=== PATIENT | male | born 1985 | race American Indian/Alaskan Native ===

== ENCOUNTER 2017-05-02 20:39 | Emergency (ER) | payer BC, OTHER ==
--- NOTE | 2017-05-02 21:01 | EDM.PDOC ---
ED HPI GENERAL MEDICAL PROBLEM - General Chief Complaint: Skin Complaint Stated Complaint: nose ring pain Time Seen by Provider: 05/02/17 20:52 Source of Information: Reports: Patient History Limitations: Reports: No Limitations - History of Present Illness INITIAL COMMENTS - FREE TEXT/NARRATIVE: Patient is a 31-year-old male who presents to the ED wishing to nose ring removed. Patient states the ball holding the nose ring in place fell off and now he cannot move the nose ring freely. He believes it is stuck. He attempted to pull it out no success. There is no drainage, redness, and/or swelling noted to the site. - Related Data Allergies Allergy/AdvReac Type Severity Reaction Status Date / Time No Known Allergies Allergy Verified 05/02/17 20:46 Home Meds: Home Meds Penicillin V Potassium 500 mg PO Q6H 05/02/17 [History] Past Medical History - Past Health History Medical/Surgical History: Denies Medical/Surgical History Social & Family History - Tobacco Use Smoking Status *Q: Never Smoker Second Hand Smoke Exposure: No - Alcohol Use Days Per Week of Alcohol Use: 0 - Recreational Drug Use Recreational Drug Use: No ED ROS GENERAL - Review of Systems Review Of Systems: ROS reveals no pertinent complaints other than HPI. ED EXAM, SKIN/RASH Exam: See Below Exam Limited By: No Limitations General Appearance: Alert, WD/WN, No Apparent Distress Ears: Hearing Grossly Normal Nose: Normal Inspection (Cold color nose ring to the left nares. Unable to manipulate. No swelling, redness, or purulent drainage noted.), Other Throat/Mouth: Normal Voice, No Airway Compromise Neck: Supple Respiratory/Chest: No Respiratory Distress Course - Vital Signs Last Recorded V/S: Last Vital Signs Temp 97.5 F 05/02/17 20:47 Pulse 94 05/02/17 20:47 Resp 15 05/02/17 20:47 BP 129/80 05/02/17 20:47 Pulse Ox 97 05/02/17 20:47 - Re-Assessments/Exams Free Text/Narrative Re-Assessment/Exam: Utilized a wire snips to cut the nose ring. Once cut the nose ring fell out. No bleeding. Minimal pain present. No other concerning findings. Discharge instructions as documented. Departure - Departure Time of Disposition: 20:59 Disposition: Home, Self-Care 01 Condition: Good Clinical Impression: Nose pain - Discharge Information Referrals: PCP,None [Primary Care Provider] - Forms: ED Department Discharge, ED Return to Work/School Form Additional Instructions: Monitor for increased redness, purulent drainage, or increasing pain. At this point Tylenol and ibuprofen as needed for pain. Return to the ED as needed for any new or worsening symptoms.
== END 2017-05-02 21:11 | disposition home or self-care (01) ==
LOC: JD.ED 20:39
DX: J34.89 Other specified disorders of nose and nasal sinuses (principal)
CPT/HCPCS: 99282; 99283

== ENCOUNTER 2017-08-23 16:28 | Emergency (ER) | payer MEDICAID, OTHER ==
--- NOTE | 2017-08-23 17:39 | EDM.PDOC ---
<Merced Burnett - Last Filed: 08/23/17 17:49> ED HPI GENERAL MEDICAL PROBLEM - General Chief Complaint: ENT Problem Stated Complaint: THROAT IS TIGHT/FOOD GETS STUCK Time Seen by Provider: 08/23/17 17:25 Source of Information: Reports: Patient History Limitations: Reports: No Limitations - History of Present Illness INITIAL COMMENTS - FREE TEXT/NARRATIVE: 32 yo male presents for concern about throat tightening and the sensation that he may choke while eating for the past few weeks. 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 He is worried this sensation feels the same as he did before the tumor was found and is concerned it may have returned. 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 He works in the [employer] and tomorrow is his first day of this job for the next two weeks. His mother and sister have lymphoma and he is anxious about leaving them. He admits to increased anxiety about the tumor returning and being out on the job site far from medical facilities and choking on food. He denies that he has actually choked on food but has brought tiny particles back up. He can swallow liquids and saliva with no problems. He denies dyspnea on exertion or shortness of breath or cough. He is asymptomatic when he is not eating. He was recently prescribed Hydroxyzine back home in [place], but has not started taking it yet because he needs it cleared through work. He reports associated itching and prickly sensation starting at his head and traveling down to his feet when he eats and has these choking or throat tightening sensations. He reports a great fear of his "heart stopping" and does not want to take any medications that could prolong his QT interval. He said this is why he stopped an SSRI and why he is also concerned about Hydroxyzine. He admits to an anxious personality and increased stress, but believes the possibility of the nerve tumor returning has made this worse. Onset: Gradual Onset Date: 08/04/17 Duration: Week(s): (approximately 2 weeks ago), Other (only with eating food) Location: Reports: Other (throat) Quality: Reports: Other (tightness with swallowing) Improves with: Reports: None Worsens with: Reports: Eating Context: Reports: Other (onset after eating pancakes a few weeks ago) Associated Symptoms: Reports: Loss of Appetite (2/2 fear of choking or having food stuck), Other (anxiety) - Related Data Allergies Allergy/AdvReac Type Severity Reaction Status Date / Time fish oil Allergy Rash Verified 08/23/17 16:36 Home Meds: Home Meds . [No Known Home Meds] 08/23/17 [History] Past Medical History - Past Health History Medical/Surgical History: Denies Medical/Surgical History Social & Family History - Tobacco Use Smoking Status *Q: Never Smoker - Recreational Drug Use Recreational Drug Use: No ED ROS ENT - Review of Systems Review Of Systems: See Below Constitutional: Reports: No Symptoms. Denies: Fever, Chills, Malaise, Weakness HEENT: Reports: Other (throat tightness and difficulty swallowing solid foods) Respiratory: Reports: No Symptoms. Denies: Shortness of Breath, Wheezing, Cough Cardiovascular: Reports: No Symptoms. Denies: Chest Pain, Dyspnea on Exertion Endocrine: Reports: No Symptoms GI/Abdominal: Reports: No Symptoms Musculoskeletal: Reports: No Symptoms Skin: Reports: No Symptoms. Denies: Rash, Wound, Change in Color, Lesions, Urticaria Neurological: Reports: Tingling ED EXAM, ENT - Physical Exam Exam: See Below Exam Limited By: No Limitations General Appearance: Alert, WD/WN, No Apparent Distress, Anxious Ears: Hearing Grossly Normal Mouth/Throat: Normal Inspection, Normal Lips, Normal Oropharynx. No: Tongue Swelling, Tonsillar Erythema, Tonsillar Exudates, Tonsillar Swelling, Uvular Edema Head: Atraumatic, Normocephalic Neck: Normal Inspection, Supple, Non-Tender, Full Range of Motion. No: Lymphadenopathy (L), Lymphadenopathy (R) Respiratory/Chest: No Respiratory Distress, Lungs Clear, Normal Breath Sounds, No Accessory Muscle Use Cardiovascular: Normal Peripheral Pulses, Regular Rate, Rhythm, No Edema, No Murmur, No Rub GI/Abdominal: Normal Bowel Sounds, Soft, Non-Tender Neurological: Alert, Oriented, Normal Cognition, No Motor/Sensory Deficits Psychiatric: Normal Affect, Anxious Skin: Warm, Dry, Intact, Normal Color, No Rash Course - Vital Signs Last Recorded V/S: Last Vital Signs Temp 98 F 08/23/17 16:33 Pulse 64 08/23/17 16:33 Resp 16 08/23/17 16:33 BP 123/80 08/23/17 16:33 Pulse Ox 98 08/23/17 16:33 Departure - Departure Disposition: Home, Self-Care 01 Clinical Impression: Anxiety - Discharge Information Instructions: Generalized Anxiety Disorder, Adult, Living With Anxiety Referrals: PCP,None [Primary Care Provider] - Forms: ED Department Discharge Additional Instructions: Suspect most of your complaints is related to anxiety of being away from family and current family situation with sister and mom diagnosed with cancer. Anxiety can bring on the sensation of your throat being tight and also develop a globalized itching sensation to your body. I suggest taking the hydroxyzine as prescribed . See your PCP for further managment of anxiety disorder. Return to the E.D. if you develop any new or worsensing symptoms. <Trevor Marx O - Last Filed: 08/23/17 22:26> Course - Re-Assessments/Exams Free Text/Narrative Re-Assessment/Exam: Agree with HPI and physical examination findings by Lalitha SALCEDO. No treatment required. Discharge instructions as documented. Departure - Departure Time of Disposition: 17:46 Condition: Good
== END 2017-08-23 17:49 | disposition home or self-care (01) ==
LOC: JD.ED 16:28
DX: F41.9 Anxiety disorder, unspecified (principal)
CPT/HCPCS: 99282; 99284

== ENCOUNTER 2017-09-06 20:12 | Emergency (ER) | payer OTHER ==
[2017-09-06] MEDS ORDERED: Sodium Chloride 0.9% 10 ML Syringe FLUSH PRN (21:06)
--- NOTE | 2017-09-06 21:18 | EDM.PDOC ---
ED HPI GENERAL MEDICAL PROBLEM - General Chief Complaint: Back Pain or Injury Stated Complaint: BACK PAIN Time Seen by Provider: 09/06/17 20:27 Source of Information: Reports: Patient History Limitations: Reports: No Limitations - History of Present Illness INITIAL COMMENTS - FREE TEXT/NARRATIVE: 32-year-old male presents for evaluation treatment of back pain. Patient reports he is having back pain between his shoulders. States that it started today. He also reports associated symptoms of epigastric pain, nausea and lightheadedness. He denies any syncope or vomiting. Has also appreciated over the last few days he's had a lump in the epigastric area. States that the back pain comes and goes. Denies any trauma but today he reports while at work he fell forward onto outstretched hands. He works on the [employer]. He has some bruising to his hands from this. He has difficulty describing the back pain; cannot tell me if it is a sharp pain, squeezing or tearing. He states that his back feels numb. Reports it feels like something is stuck in his back. Patient reports he was seen in our ED several weeks ago. He states that he has not felt well since then. He has not followed up with any primary care provider since then. Patient resides in [facility] and [facility] for work. He is headed back to [place] tomorrow for 2 weeks off of work. Location: Reports: Chest, Abdomen, Back Middle Back Pain Score (Numeric/FACES): 6 - Related Data Allergies Allergy/AdvReac Type Severity Reaction Status Date / Time fish oil Allergy Rash Verified 09/06/17 20:27 Home Meds: Home Meds LORazepam [Ativan] 0.5 mg PO Q8HR PRN #10 tablet 09/06/17 [Rx] Past Medical History - Past Health History Medical/Surgical History: Denies Medical/Surgical History Social & Family History - Tobacco Use Smoking Status *Q: Never Smoker - Recreational Drug Use Recreational Drug Use: No ED ROS GENERAL - Review of Systems Review Of Systems: See Below Constitutional: Reports: Malaise. Denies: Decreased Appetite Respiratory: Denies: Shortness of Breath Cardiovascular: Reports: Lightheadedness GI/Abdominal: Reports: Abdominal Pain (epigastric and across upper abdomen), Nausea. Denies: Diarrhea, Vomiting Musculoskeletal: Reports: Back Pain (mid back in between shoulder blades) Neurological: Reports: Numbness (mid back in between shoulder blades). Denies: Syncope ED EXAM, UPPER BACK/NECK PAIN - Physical Exam Exam: See Below Exam Limited By: No Limitations General Appearance: Alert, WD/WN, Anxious, Thin, Other (long face, sunken eyes; tall; marfan-like appearance) Ears Exam: Normal External Exam Nose Exam: Normal Inspection Throat/Mouth Exam: Normal Inspection, Normal Lips, Normal Voice, No Airway Compromise Cardiovascular/Respiratory: Regular Rate, Rhythm, No M/R/G, Normal Peripheral Pulses GI/Abdominal: Normal Bowel Sounds, Soft, Non-Tender Back Exam: Normal Inspection. No: Paraspinal Tenderness, Vertebral Tenderness Neurologic: Alert, Normal Mood/Affect Psychiatric: Normal Affect, Normal Mood Skin Exam: Normal Color, Warm/Dry Course - Vital Signs Last Recorded V/S: Last Vital Signs Temp 97.1 F 09/06/17 20:24 Pulse 91 09/06/17 20:24 Resp 16 09/06/17 20:24 BP 130/87 09/06/17 20:24 Pulse Ox 98 09/06/17 20:24 - Orders/Labs/Meds Labs: Laboratory Tests 09/06/17 09/06/17 Range/Units 21:06 21:06 WBC 4.51 (4.23-9.07) K/mm3 RBC 4.94 (4.63-6.08) M/mm3 Hgb 14.2 (13.7-17.5) gm/L Hct 41.2 (40.1-51.0) % MCV 83.4 (79.0-92.2) fl MCH 28.7 (25.7-32.2) pg MCHC 34.5 (32.2-35.5) g/dl RDW Std Deviation 39.2 (35.1-43.9) fL Plt Count 208 (163-337) K/mm3 MPV 9.6 (9.4-12.3) fl Neut % (Auto) 59.9 (34.0-67.9) % Lymph % (Auto) 29.5 (21.8-53.1) % [place] % (Auto) 10.0 (5.3-12.2) % Eos % (Auto) 0.2 L (0.8-7.0) Baso % (Auto) 0.4 (0.1-1.2) % Neut # (Auto) 2.70 (1.78-5.38) K/mm3 Lymph # (Auto) 1.33 (1.32-3.57) K/mm3 [place] # (Auto) 0.45 (0.30-0.82) K/mm3 Eos # (Auto) 0.01 L (0.04-0.54) K/mm3 Baso # (Auto) 0.02 (0.01-0.08) K/mm3 Sodium 140 (136-145) mEq/L Potassium 3.3 L (3.5-5.1) mEq/L Chloride 104 (98-107) mEq/L Carbon Dioxide 24 (21-32) mEq/L Anion Gap 15.3 H (5-15) BUN 21 H (7-18) mg/dL Creatinine 1.0 (0.7-1.3) mg/dL Est Cr Clr Drug Dosing 127.79 mL/min Estimated GFR (MDRD) > 60 (>60) mL/min BUN/Creatinine Ratio 21.0 H (14-18) Glucose 87 (74-106) mg/dL Calcium 8.4 L (8.5-10.1) mg/dL Total Bilirubin 0.9 (0.2-1.0) mg/dL AST 20 (15-37) U/L ALT 18 (16-63) U/L Alkaline Phosphatase 56 (46-116) U/L C-Reactive Protein 0.2 (<1.0) mg/dL Total Protein 6.9 (6.4-8.2) g/dl Albumin 4.1 (3.4-5.0) g/dl Globulin 2.8 gm/dL Albumin/Globulin Ratio 1.5 (1-2) Lipase 73 (73-393) U/L Meds: Medications Discontinued Medications Generic Name Dose Route Start Last Admin Trade Name Freq PRN Reason Stop Dose Admin Iopamidol 100 ml 09/06/17 22:02 Isovue-370 (76%) IVPUSH 09/06/17 22:03 ONETIME ONE Iopamidol 50 ml 09/06/17 22:02 Isovue-300 (61%) IVPUSH 09/06/17 22:03 ONETIME ONE Lorazepam 1 mg 09/06/17 21:43 09/06/17 21:47 Ativan IVPUSH 09/06/17 21:44 1 mg ONETIME ONE Administration Ondansetron HCl 4 mg 09/06/17 21:43 09/06/17 21:47 Zofran IVPUSH 09/06/17 21:44 Not Given ONETIME ONE Sodium Chloride 10 ml 09/06/17 21:06 09/06/17 21:47 Saline Flush FLUSH 10 ml ASDIRECTED PRN Administration Keep Vein Open - Radiology Interpretation Free Text/Narrative:: Abdominal ultrasound of the right upper quadrant pressure per [facility] hepatomegaly. CT angiogram of the chest, abdomen with IV contrast normal chest CTA. No evidence of aortic dissection. No acute findings in the arteries of the abdomen. - Re-Assessments/Exams Free Text/Narrative Re-Assessment/Exam: 09/06/17 22:59 The patient was very concerned the discomfort he is experiencing is from his aorta. I have a low suspicion his discomfort is coming from his aorta, however, he does have a marfan-like appearance to him. He reports he has never been diagnosed with marfans but it does not sound like he has had formal testing. Therefor the decision was made to go ahead and obtain imaging of his aorta. I reviewed the labs and imaging with the patient. I fell a large component of what he is experiencing is anxiety. He has a stressful job and a stressful home situation. Will prescribe him a small amount of ativan to help with anxiety. Encouraged to follow-up with family med. Discharge instructions as documented. Departure - Departure Time of Disposition: 22:56 Disposition: Home, Self-Care 01 Condition: Fair Clinical Impression: Back pain, Anxiety - Discharge Information Prescriptions: LORazepam [Ativan] 0.5 mg PO Q8HR PRN #10 tablet PRN Reason: Anxiety Instructions: Generalized Anxiety Disorder, Adult, Back Pain, Adult, Easy-to- Read Referrals: PCP,None [Primary Care Provider] - Forms: ED Department Discharge Additional Instructions: Recommend following up with your primary care provider within 2 weeks for a recheck of your symptoms and further medication management. Ativan 0.5 m every 8 hours as needed for stress and anxiety. Ativan can make you fatigue. we do not recommend that you drive or operate machinery within 8 hours of taking Ativan. Your given Ativan in the ER tonight. Do not recommend a drive or operate machinery within 8 hours. Please return to the ER if your symptoms change or worsen.
[2017-09-06] MEDS ORDERED: LORazepam 2 MG/ML SDV IVPUSH ONE (21:43)
[2017-09-06] MEDS ORDERED: Ondansetron 4 MG/2 ML SDV IVPUSH ONE (21:43)
[2017-09-06] MEDS ORDERED: Iopamidol 612 MG/ML 50 ML SDV IVPUSH ONE (22:02)
[2017-09-06] MEDS ORDERED: Iopamidol 755 Mg/ML 100 ML Bottle IVPUSH ONE (22:02)
--- NOTE | 2017-09-09 10:58 | CT ---
CT chest Technique: Multiple axial sections were obtained from above the lung apices inferiorly through the lung bases. Intravenous contrast was utilized. Comparison: No prior chest imaging. Findings: Thoracic aorta shows no aneurysm or dissection. Mediastinum and hilar regions show no adenopathy or mass. No pericardial thickening is seen. No axillary adenopathy is identified. Lungs are clear without acute parenchymal densities. Minimal scarring seen within both lung bases. Bone window settings were reviewed which show no acute bony abnormality. Impression: 1. No acute abnormality is seen on CT study of the chest. No thoracic aortic aneurysm or dissection is seen. Diagnostic code #1 I agree with preliminary report from [email or web address], finalized at 09/06/17, 11:[address] abdomen and pelvis Technique: Multiple axial sections were obtained from above the dome of the diaphragm inferiorly through the pubic symphysis. Intravenous contrast was utilized. No oral contrast was utilized. Contrast remains within the arterial phase. Findings: Abdominal aorta shows no aneurysmal dilatation. Celiac axis and superior mesenteric artery as well as inferior mesenteric artery are patent. Two left renal arteries and 2 right renal arteries are seen which appear patent. Liver shows no focal abnormality. Spleen appears normal. Gallbladder is contracted. Kidneys show symmetric contrast enhancement without hydronephrosis or mass. Pancreas is within normal limits. Aorta shows no aneurysmal dilatation. Appendix is seen which is normal. No pelvic mass or adenopathy is seen. No free fluid or inflammatory change is seen. 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 Right-sided neural foraminal stenosis noted at S1-S2. No acute bony abnormality is seen. Impression: 1. Abdominal aorta shows no aneurysm or dissection. 2. Other incidental findings as noted above. Diagnostic code #2 I agree with preliminary report from [facility], finalized at 09/06/17, 11:41 PM Central Time
--- NOTE | 2017-09-09 10:59 | US ---
Limited abdominal ultrasound: Multiple real-time images of the upper right abdomen were obtained. Comparison: No previous abdominal imaging. Liver shows no focal abnormality. Gallbladder contains no calcified gallstones. No gallbladder wall thickening or biliary duct dilatation is seen. Right kidney shows no hydronephrosis or mass and has a length of 11.6 cm. Pancreas appears within normal limits as seen. Inferior vena cava is patent. Portal vein shows normal hepatopedal flow. Impression: 1. No abnormality is identified on right upper quadrant abdominal ultrasound. Diagnostic code #1 I agree with preliminary report from [facility], finalized at 09/06/17, 11:18 PM Central Time
== END 2017-09-06 23:05 | disposition home or self-care (01) ==
LOC: JD.ED 20:12
DX: M54.6 Pain in thoracic spine (principal); F41.9 Anxiety disorder, unspecified
CPT/HCPCS: 36415; 71260; 74177; 76705; 80053; 83690; 85025; 86140; 96374; 99284; J2060; J7050